=== PATIENT | male | born 1945 | race Caucasian/White ===

== ENCOUNTER → 2016-07-14 | Day surgery (SDC) | payer BC ==
[~2016-07-14] MED LIST: ACETAMINOPHEN PO; AMLODIPINE BESYL5 MG PO; ANTIVERT PO; APRISO0.375 GM PO; ASACOL400 MG PO; ASPIRINEC PO; ATIVAN PO; ATORVASTATIN CA10 MG PO; BACTRIM DS TABL1 TAB PO; COLACE PO; CRESTOR PO; FLAGYL PO; FLAGYL250 M1 PO; LISINOPRIL PO; LOPRESSOR PO; OTC STOOL SOFTENER; PANTOPRAZOLE SO40 MG PO; PATIENT'S PHARMACY; PHENERGAN PO; PLAVIX PO; PREDNISONE PO; PREDNISONE10 MG PO; PRILOSEC PO; TOPROL XL PO; ZETIA PO; ZOLOFT PO; ZOLOFT100 MG PO; [UNRECOGNIZED DRUG - OTHER] PO
--- NOTE | ~2016-07-14 | OR ---
Unit #: [id number] #: [id number] Patient: MOHINDER VELÁSQUEZ [id number] [address] [address] [id number] O MR#: [id number] NAME: MOHINDER VELÁSQUEZ. ROOM: Date of Procedure: 07/14/2016 Admission Date: 07/14/2016 Surgeon: Jaycob Almeida M.D. : 1945 Attending Physician: Jaycob Almeida M.D. Primary Care Physician: Jane Dailey M.D. OPERATIVE REPORT PROCEDURE PERFORMED Colonoscopy with biopsies. INDICATIONS FOR PROCEDURE The patient with history of ulcerative colitis, now with worsening symptoms of diarrhea with blood in mucus for last 2 months, undergoing evaluation with colonoscopy. MEDICATIONS Monitored anesthesia. POSTOPERATIVE FINDINGS 1. Patchy colitis in 2 areas, rectum close to dentate line as well as sigmoid colon, both patches about 5 to 6 cm in length circumferentially. Rest of the colon exam was normal completely. Biopsies taken from the involved area. 2. Terminal ileum was normal. 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 We will start with steroids at this time. DESCRIPTION OF PROCEDURE The patient was explained of the procedure, risks, and benefits along with the risks and benefits of anesthesia. He was brought to the endoscopy room. Propofol anesthesia was given. Rectal exam was done, which was normal. Colonoscope was lubricated, passed up the rectum, advanced under direct vision all the way to the cecum. Cecum was identified by ileocecal valve and appendiceal orifice. Terminal ileum was intubated, shows normal mucosa. Colonic mucosa was normal throughout. Biopsies taken from the involved area. I retroflexed in the rectum, small hemorrhoids seen also. Scope was gently pulled out. He tolerated it well. Dictated by... Luis Rowell/edith TD: 07/14/2016 22:57 JOB #: [id number] Unit #: [id number] #: [id number] Patient: MOHINDER VELÁSQUEZ OPERATIVE REPORT Page 1 of 1 X Jaycob Almeida MD PROCEDURE OPERATIVE NOTE
== END | disposition home or self-care (01) ==
LOC: COPS 11:24
DX: K63.89 Other specified diseases of intestine (principal); K62.89 Other specified diseases of anus and rectum; K64.9 Unspecified hemorrhoids; E11.9 Type 2 diabetes mellitus without complications; I25.10 Atherosclerotic heart disease of native coronary artery without angina pectoris; M19.90 Unspecified osteoarthritis, unspecified site; Z86.73 Personal history of transient ischemic attack (TIA), and cerebral infarction without residual deficits; Z87.891 Personal history of nicotine dependence; Z88.6 Allergy status to analgesic agent; Z79.02 Long term (current) use of antithrombotics/antiplatelets; Z79.2 Long term (current) use of antibiotics; Z79.899 Other long term (current) drug therapy; Z90.49 Acquired absence of other specified parts of digestive tract; Z98.890 Other specified postprocedural states
CPT/HCPCS: 88305